=== PATIENT | female | born 1990 | race Caucasian/White ===

== ENCOUNTER → 2018-04-20 13:42 | Outpatient (CLI) | payer BC, SELFPAY ==
[2018-04-26 10:32] LABS: HPV Reflexed? NOT INDICATED
== END ==
PROVIDERS: Visit Provider Obstetrics & Gynecology
DX: Z12.4 Encounter for screening for malignant neoplasm of cervix (principal)
CPT/HCPCS: 88175; G0145

== ENCOUNTER → 2020-07-16 15:33 | Outpatient (CLI) | payer BC, SELFPAY ==
[2019-09-15 17:50] VITALS: BMI 29.9
--- NOTE | 2020-07-16 15:29 | RAD_ITS ---
STUDY: X-RAY - RIGHT KNEE REASON FOR EXAM: Female, 30 years old. bilateral knee pain ever since doing extensive hiking this summer TECHNIQUE: 3 view(s) of the knee. COMPARISON: None. FINDINGS: Normal visualized distal femur. Normal visualized proximal tibia and fibula. Normal proximal tibiofibular articulation. Normal medial femorotibial compartment. Normal lateral femorotibial compartment. Normal patellofemoral articulation. The soft tissue structures are unremarkable. RAD/Knee 3 Views IMPRESSION: Normal x-ray examination of the knee. Electronically Signed: Bennie Ortega MD at 14:13 EST Tel , Service support ,
--- NOTE | 2020-07-16 15:29 | RAD_ITS ---
HISTORY: bilateral knee pain ever since doing extensive hiking this summer ADDITIONAL HISTORY: None provided. EXAMINATION/TECHNIQUE: XR Knee 3 Views Left Number of images including paperwork: 3 COMPARISON: None FINDINGS: BONES: No acute fracture. JOINTS: No subluxation. SOFT TISSUES: No distinct foreign body. RAD/Knee 3 Views IMPRESSION: No acute osseous abnormality. at 0648 Reported and signed by: Alicia Jarrett MD Electronically Signed: Alicia Jarrett MD at 6:48 EST Tel , Service support ,
== END ==
PROVIDERS: PCP Family Medicine; Referring Provider Family Medicine; Visit Provider Family Medicine
DX: M25.569 Pain in unspecified knee (principal)
CPT/HCPCS: 73562

== ENCOUNTER 2020-09-30 17:00 | Outpatient (RCR) | payer BC, SELFPAY ==
[2019-09-15 17:50] VITALS: BMI 29.9
--- NOTE | 2020-07-24 17:27 | HP.PTEVAL_ITS ---
Patient's Visit Information JAMES CANO is a 30 year old F referred to Physical Therapy by Dr. Johnathan Munguia MD with a diagnosis of LEFT KNEE PAIN ,PATELOFEMORAL MALTRACKING. Date of Evaluation: 07/24/20 Physical Therapist: Adam Berrios, PT, Cert MDT, OCS - Visit Plan Frequency: 2x /Week Duration: 4 Weeks Plan: PT INTERVENTIONS PRE'S QUADS/HAMS/HIP,PROPRIOCEPTION,AND FUNCTIONAL STRENGTHENING - Subjective This 30 y/o feamjose luis presents to physical therapy with left knee pain ,patellofemoral maltracking. Patient noticed knee pain after Hiking in [place] . Patient noticed pain with sqatting,stairs ,running . Patient attempted to run couple weeks ago and noticed pain in anterior decribed as sharp pain. Aggraveting factors runing ,squatting,kneeling stairs. General walking/standing is ok . Denies paratbhesia/tingling. Sleeping okay. Patient pain affects functional activites and QOL. Patient had x-rays - and provided with meloxicam. VOCATION: Insurance. SOCAIL: single. HOBBIES : soccer ,running - Pain Left Knee Pain Intensity (Out of 10): 3 Pain Intensity Range: 10 - Objective POSTURE: WFL .slight supination left foot. GAIT: ambulates with reciprocal pattern left foot supination. EDEMA: absent. NEURO: intact. AROM: 0-140 dgrees supine knee flexion. MMT: quads/hams 4/5,hip flexion 4/5,hip abdution 4-/5,ankle 4/5. FLEXABLITY: hams mild tight. SQUAT: pain. PATELLA TRACKING : lateral deviation when quad is activated - Special Tests L Knee Araseli - Meniscus: Negative L Knee Anterior Drawer - ACL: Negative L Knee Pivot Shift - ACL, Ant. Rotator Instability: Negative L Knee Valgus - MCL: Negative L Knee Varus - LCL: Negative L Knee Patellar Apprehension - PFS: Negative L Knee Patellar Grind - PFS: Negative - Goals Goal 1:: Independant with HEP. Goal Time Frame: 4-6 Weeks Goal 2:: Decrease knee pain by 75% or > to improve function. Goal Time Frame: 4-6 Weeks Goal 3:: Patient to improve strength quads 5/5 and hip 4/5 to improve patella tracking and function. Goal Time Frame: 4-6 Weeks Goal 4:: Patient increase LFES score by 5 points or > to improve ability to run and RTS soccer. Goal Time Frame: 4-6 Weeks Goal 5:: Patient improve ability to squat ,run and return to soccer . Goal Time Frame: 4-6 Weeks - Rehabilitation Potential Physical Therapy Diagnosis: This patient has patella pain due to patelofemoral dysfunction with lateral tracking with pain with squatting,kneeling,running and stairs,unbale to return to soccer thus benifit from skilled PT Rehabilitation Potential: Good - Anticipated Interventions Patient/Client Instruction: Educate patient on: Condition, Plan of Care For the Purpose of:: To decrease pain, To improve muscle performance and motor function, To increase tolerance to activity/condition/position, To improve ability of physical actions for home/community/work/leisure, To improve health of tissue, To decrease soft tissue restriction, To reduce risk of recurrence, To improve ability to perform tasks related to life management Therapeutic Exercise to Include: Strength training, Endurance training, Balance training, Flexibilty training Comment: QUADS/HAMS/HIP For the Purpose of:: To decrease pain, To increase ROM, To increase tolerance to activity/condition/position, To improve ability of physical actions for home/community/work/leisure, To improve health of tissue, To decrease soft tissue restriction, To improve ability to perform tasks related to life management TENS: Yes IF ES: Yes Cryotherapy (ice pack, ice massage): Yes Thermo therapy (hot pack): Yes For the Purpose of:: To decrease pain, To improve muscle performance and motor function, To improve health of tissue, To decrease soft tissue restriction Thank you for the opportunity to evaluate your patient. For Medicare and Medicare HMO plans, please review the plan of care and approve it. It will need to be FAXED BACK to us at [phone] for Medicare purposes. For Medicare only, by signing this I certify the plan of care. Please let me know if there are questions or concerns regarding this plan of care. Physician Signature: __Date:
--- NOTE | 2020-09-30 17:29 | HP.PTDCSUM ---
It has been my pleasure to treat JAMES CANO referred by Dr. Johnathan Munguia MD, with the diagnosis of LEFT KNEE PAIN ,PATELOFEMORAL MALTRACKING for a total of 16 visit(s). Discharge Date: 09/30/20 Please see the following information for a summary of their discharge status. Subjective: Doing well with ex's . Ready for d/c Patient has been running on treadmill. Intiating running program Left Knee Pain Intensity (Out of 10): 0 % Improvement: 75 Objective/Function: POSTURE: WFL. MMT: QUAD/HAMS/HIP FLEXION /ABD 5/5. GAIT: NORMAL CADANCE. AROM: 0-135 DEGREES. FUNCTIONAL SQUATS/STAIRS : WFL Goal 1:: Independant with HEP. Goal Progress: Goal Met Goal 2:: Decrease knee pain by 75% or > to improve function. Goal Progress: Goal Met Goal 3:: Patient to improve strength quads 5/5 and hip 4/5 to improve patella tracking and function. Goal Progress: Goal Met Goal 4:: Patient increase LFES score by 5 points or > to improve ability to run and RTS soccer. Goal Progress: Goal Met Goal 5:: Patient improve ability to squat ,run and return to soccer . Goal Progress: Goal Met Plan: D/C TO HEP Discharge Comments: HEP AND RUNNING PROGRAM If there are questions or concerns regarding this patient's physical therapy, please feel free to call me at [phone]. Thank you for the referral of this patient. Sincerely, Adam Berrios, PT, Cert MDT, OCS
== END 2020-09-30 19:00 | disposition home or self-care (01) ==
LOC: PT 17:00
PROVIDERS: PCP Family Medicine; Referring Provider Family Medicine; Visit Provider Family Medicine
DX: M22.2X2 Patellofemoral disorders, left knee (principal)
CPT/HCPCS: 97110; 97161

== ENCOUNTER 2020-12-25 08:20 | Outpatient (RCR) | payer BC, SELFPAY ==
[2019-09-15 17:50] VITALS: BMI 29.9
[2020-12-25] MEDS: COVID-19 VACC, MRNA(PFIZER)/PF 30 MCG/0.3 ML SYRINGE IM (13:52)
[2021-01-15] MEDS: COVID-19 VACC, MRNA(PFIZER)/PF 30 MCG/0.3 ML SYRINGE IM (13:15)
== END 2021-02-11 23:59 ==
LOC: IMMUN 08:20
PROVIDERS: PCP Family Medicine; Referring Provider Family Medicine; Visit Provider Family Medicine
DX: Z23 Encounter for immunization (principal)
CPT/HCPCS: 0001A; 0002A; 91300